=== PATIENT | male | born 1985 | race Caucasian/White ===

== ENCOUNTER 2017-04-16 09:58 | Emergency (ER) | payer SELFPAY ==
[~2017-04-16] VITALS: Ht 175.3 cm; Wt 75.0 kg
[~2017-04-16 09:58] MED LIST: LORTA5 PO; TAMS0.4C67 PO; ZOFR4TAB3 SL
[2017-04-16 10:00] VITALS: BP 136/94; PULSE 129; RESP 18; TEMP 98.9; O2SAT 99
--- NOTE | 2017-04-16 10:21 | PD ---
HPI Chief Complaint: Chest Pain Time Seen by Provider: 10:18 Travel History International Travel<30 days: No Contact w/Intl Traveler<30days: No Traveled to known affect area: No History of Present Illness HPI 31-year-old male with history of opiate abuse, use Suboxone two days ago, and notes that he has been having chest discomfort which she currently rates at an 8 out of 10 with radiation to the back, feeling unsettled, and having some mild shortness of breath. He denies any nausea, vomiting, or any other symptoms. He states that he has been trying to get off of opiates on his own. He has also tried using herbal remedies. Modifying Factors: None Associated Signs & Symptoms: Chest discomfort and shortness of breath, trying to get off opiates Risk Factors: None PFSH Past Medical History Anxiety: Yes Kidney Stones: Yes Social History Alcohol Use: No Tobacco Use: Yes (1/2 PACK DAILY) Substance Use: Yes (Opiate abuse, last used a 2 days ago, denies IV use) Allergies-Medications (Allergen,Severity, Reaction): Coded Allergies: Christopherlor (Verified Allergy, Mild, 11/19/14) Reported Meds & Prescriptions Reported Meds & Active Scripts Active Zofran ODT (Ondansetron HCl) 4 Mg Tab 4 Mg SL Q6H PRN FOR NAUSEA/VOMITING Flomax (Tamsulosin HCl) 0.4 Mg Cap 0.4 Mg PO DAILY [place] 5/325 (Hydrocodone/Acetaminophen 5/325) 5 mg/325 mg Tab 1 Tab PO Q6H PRN Review of Systems Except as stated in HPI: all other systems reviewed are Neg Physical Exam Narrative GENERAL: Well-developed young white male patient currently in mild distress. Appears smiling H's. Awake and oriented 3. SKIN: Focused skin assessment warm/dry. HEAD: Atraumatic. Normocephalic. EYES: Pupils equal and round. No scleral icterus. No injection or drainage. ENT: No nasal bleeding or discharge. Mucous membranes pink and moist. NECK: Trachea midline. No JVD. CARDIOVASCULAR: Regular rate and rhythm. No murmur appreciated. Pulses are present and equal bilaterally. RESPIRATORY: No accessory muscle use. Clear to auscultation. Breath sounds equal bilaterally. GASTROINTESTINAL: Abdomen soft, non-tender, nondistended. Hepatic and splenic margins not palpable. MUSCULOSKELETAL: No obvious deformities. No clubbing. No cyanosis. No edema. NEUROLOGICAL: Awake and alert. No obvious cranial nerve deficits. Motor grossly within normal limits. Normal speech. PSYCHIATRIC: Appropriate mood and affect; insight and judgment normal. Data Data Last Documented VS Vital Signs Date Time Temp Pulse Resp B/P Pulse Ox O2 Delivery O2 Flow Rate FiO2 04/16/17 10:49 101 117/56 112/60 04/16/17 10:27 97 Room Air 04/16/17 10:27 18 04/16/17 10:00 98.9 Orders Electrocardiogram (04/16/17 10:18) B-Type Natriuretic Peptide (04/16/17 10:18) Ckmb (Isoenzyme) Profile (04/16/17 10:18) Complete Blood Count With Diff (04/16/17 10:18) Comprehensive Metabolic Panel (04/16/17 10:18) D-Dimer (04/16/17 10:18) Magnesium (Mg) (04/16/17 10:18) Prothrombin Time / Inr (Pt) (04/16/17 10:18) Act Partial Throm Time (Ptt) (04/16/17 10:18) Troponin I (04/16/17 10:18) Chest, Single Ap (04/16/17 10:18) Ecg Monitoring (04/16/17 10:18) Bilateral Bp Monitoring (04/16/17 10:18) Iv Access Insert/Monitor (04/16/17 10:18) Oximetry (04/16/17 10:18) Oxygen Administration (04/16/17 10:18) Sodium Chloride 0.9% Flush (Ns Flush) (04/16/17 10:30) Labs Laboratory Tests Test 04/16/17 10:39 White Blood Count 10.2 TH/MM3 Red Blood Count 4.42 MIL/MM3 Hemoglobin 14.5 GM/DL Hematocrit 42.5 % Mean Corpuscular Volume 96.2 FL Mean Corpuscular Hemoglobin 32.7 PG Mean Corpuscular Hemoglobin 34.0 % Concent Red Cell Distribution Width 13.7 % Platelet Count 200 TH/MM3 Mean Platelet Volume 9.1 FL Neutrophils (%) (Auto) 70.1 % Lymphocytes (%) (Auto) 15.5 % Monocytes (%) (Auto) 10.6 % Eosinophils (%) (Auto) 3.3 % Basophils (%) (Auto) 0.5 % Neutrophils # (Auto) 7.1 TH/MM3 Lymphocytes # (Auto) 1.6 TH/MM3 Monocytes # (Auto) 1.1 TH/MM3 Eosinophils # (Auto) 0.3 TH/MM3 Basophils # (Auto) 0.1 TH/MM3 CBC Comment DIFF FINAL Differential Comment Prothrombin Time 10.8 SEC Prothromb Time International 1.0 RATIO Ratio Activated Partial 32.2 SEC Thromboplast Time D-Dimer Quantitative (PE/DVT) 0.53 MG/L FEU Sodium Level 137 MEQ/L Potassium Level 4.2 MEQ/L Chloride Level 104 MEQ/L Carbon Dioxide Level 26.1 MEQ/L Anion Gap 7 MEQ/L Blood Urea Nitrogen 7 MG/DL Creatinine 0.73 MG/DL Estimat Glomerular Filtration 126 ML/MIN Rate Random Glucose 102 MG/DL Calcium Level 9.9 MG/DL Magnesium Level 1.8 MG/DL Total Bilirubin 0.6 MG/DL Aspartate Amino Transf 20 U/L (AST/SGOT) Alanine Aminotransferase 34 U/L (ALT/SGPT) Alkaline Phosphatase 98 U/L Total Creatine Kinase 84 U/L Troponin I LESS THAN 0.02 NG/ML B-Type Natriuretic Peptide 38 PG/ML Total Protein 7.8 GM/DL Albumin 3.8 GM/DL MDM Medical Decision Making Medical Screen Exam Complete: Yes Emergency Medical Condition: Yes Medical Record Reviewed: Yes Interpretation(s) EKG shows sinus tachycardia rate of 110 bpm, no acute ST elevation or depression , and no arrhythmias. No significant T-wave inversions. Laboratory Tests Test 04/16/17 10:39 Red Blood Count 4.42 MIL/MM3 (4.50-5.90) Neutrophils (%) (Auto) 70.1 % (16.0-70.0) Monocytes (%) (Auto) 10.6 % (0.0-8.0) Monocytes # (Auto) 1.1 TH/MM3 (0-0.9) Activated Partial 32.2 SEC Thromboplast Time (24.3-30.1) D-Dimer Quantitative (PE/DVT) 0.53 MG/L FEU (0.00-0.50) Troponin I LESS THAN 0.02 NG/ML (0.02-0.05) Differential Diagnosis Chest discomfort, anxiety, shortness of breathanxiety attack versus opiate withdrawals versus dysrhythmias versus ACS Narrative Course EKG did not show any signs of acute changes. Cardiac enzymes and negative. Vital signs are stable. He is essentially negative as well. At this point, I suspect that some of the symptoms may be secondary to opiate withdrawal. I have offered to admit the patient to chest pain center for further evaluation. At This point, he declines. My plan would be to release the patient would follow-up to primary care physician. Return for new issues as needed. The plan has discussed with the patient and he states understanding. Diagnosis Primary Impression: Atypical chest pain Disposition: 01 DISCHARGE HOME Condition: Stable Maria Elena Orozco MD Apr 16, 2017 10:21
[2017-04-16 10:27] VITALS: RESP 18; O2SAT 99
[2017-04-16] MEDS ORDERED: SODIUM CHLORIDE 0.9% FLUSH 10 ML FLUSH IVF PRN (10:30)
[2017-04-16 10:49] VITALS: BP_SYST 112; BP_SYST 117; BP_DIAS 56; BP_DIAS 60; PULSE 101
[2017-04-16 10:57] LABS: AUTOMATED NEUTROPHIL # 7.1 TH/MM3 (1.8-7.7); BASOPHIL # 0.1 TH/MM3 (0-0.2); BASOPHIL % 0.5 % (0.0-2.0); EOSINOPHIL # 0.3 TH/MM3 (0-0.4); EOSINOPHIL % 3.3 % (0.0-4.0); HEMATOCRIT 42.5 % (39.0-51.0); HEMO FLAGS DIFF FINAL; LYMPH % 15.5 % (9.0-44.0); LYMPHOCYTE # 1.6 TH/MM3 (1.0-4.8); MEAN CELL VOLUME 96.2 FL (80.0-100.0); MEAN CORPUSCULAR HEMOGLOBIN 32.7 PG (27.0-34.0); MONO % 10.6 % (0.0-8.0); NEUT % 70.1 % (16.0-70.0); PLATELET COUNT 200 TH/MM3 (150-450); RED BLOOD COUNT 4.42 MIL/MM3 (4.50-5.90); RED CELL DISTRIBUTION WIDTH 13.7 % (11.6-17.2); WHITE BLOOD COUNT 10.2 TH/MM3 (4.0-11.0)
[2017-04-16 11:07] LABS: ANION GAP 7 MEQ/L (5-15); AST (GOT) 20 U/L (15-37); BICARBONATE 26.1 MEQ/L (21.0-32.0); BLOOD UREA NITROGEN 7 MG/DL (7-18); CHLORIDE 104 MEQ/L (98-107); GLOMERULAR FILTRATION RATE 126 ML/MIN (>89); MAGNESIUM 1.8 MG/DL (1.5-2.5); POTASSIUM 4.2 MEQ/L (3.5-5.1); SODIUM (NA) 137 MEQ/L (136-145)
[2017-04-16 11:09] LABS: ALT (GPT) 34 U/L (12-78)
[2017-04-16 11:12] LABS: ALKALINE PHOSPHATASE 98 U/L (45-117); TOTAL BILIRUBIN ADULT 0.6 MG/DL (0.2-1.0)
[2017-04-16 11:17] LABS: APTT (PATIENT) 32.2 SEC (24.3-30.1); PROTHROMBIN TIME - PATIENT 10.8 SEC (9.8-11.6)
[2017-04-16 11:22] LABS: CREATINE KINASE 84 U/L (39-308)
--- NOTE | 2017-04-16 12:10 | RADRPT ---
EXAM DATE/TIME: 04/16/2017 10:25 [facility] COMPARISON: FOREARM RIGHT (2VWS), November 19, 2014, 15:27. INDICATIONS : Short of breath MEDICAL HISTORY : None. SURGICAL HISTORY : None. ENCOUNTER: Initial ACUITY: 2 days PAIN SCORE: 5/10 LOCATION: Bilateral chest FINDINGS: A single view of the chest demonstrates the lungs to be symmetrically aerated without evidence of mas s, infiltrate or effusion. The cardiomediastinal contours are unremarkable. Osseous structures are intact. CONCLUSION: 1. No acute cardiopulmonary findings. Gm Reddy MD on April 16, 2017 at 12:08 Board Certified Radiologist. This report was verified electronically.
--- NOTE | 2017-04-17 10:41 | EKG ---
Date Performed: 04/16/2017 Time Performed: 10:10:16 PTAGE: 31 years EKG: SINUS TACHYCARDIA BORDERLINE RIGHT AXIS DEVIATION ST ELEVATION, PROBABLY EARLY REPOLARIZATI ON NONSPECIFIC ST & T-WAVE ABNORMALITY ABNORMAL RHYTHM ECG NO PREVIOUS TRACING DOCTOR: Carlos Coulter Interpretating Date/Time 04/17/2017 10:38:11
== END 2017-04-16 12:33 | disposition home or self-care (01) ==
LOC: NEPE 09:58
DX: R07.89 Other chest pain (principal); R06.02 Shortness of breath; R00.0 Tachycardia, unspecified
CPT/HCPCS: 71010; 80053; 82550; 83735; 83880; 84484; 85025; 85379; 85610; 85730; 93005; 99285